=== PATIENT | male | born 1995 | race Caucasian/White ===

== ENCOUNTER 2019-05-07 13:19 | Emergency (ER) | payer OTHER, BC ==
[~2019-05-07] VITALS: Ht 172.7 cm; Wt 63.5 kg
[2019-05-07 13:31] VITALS: BP_SYST 124
--- NOTE | 2019-05-07 14:14 | NUR ---
BROUGHT BACK TO BED #6, REPORT GIVEN TO NIIK
--- NOTE | 2019-05-07 14:17 | NUR ---
Patient is awake, alert, and oriented x4. Patient works at [employer] and reports that something got stuck in his eye. He now has a foreign body sensation in right eye with scratching, burning pain. Patient denies any other symptoms at this time.
--- NOTE | 2019-05-07 14:20 | NUR ---
POLLO Brown at bedside examining patient.
[2019-05-07 14:32] VITALS: BP_SYST 124
--- NOTE | 2019-05-07 14:32 | NUR ---
Patient given written and verbal discharge instructions and verbalizes understanding. ER MD discussed with patient the results and treatment provided. Patient in stable condition. ID arm band removed. Rx of gentamicin given. Patient educated on pain management and to follow up with PMD. Pain Scale 0/10. Opportunity for questions provided and answered. Medication side effect fact sheet provided.
== END 2019-05-07 14:32 | disposition home or self-care (01) ==
LOC: SED 13:19
DX: S05.01XA Injury of conjunctiva and corneal abrasion without foreign body, right eye, initial encounter (principal); X58.XXXA Exposure to other specified factors, initial encounter; Y93.89 Activity, other specified; Y92.89 Other specified places as the place of occurrence of the external cause; Y99.8 Other external cause status
CPT/HCPCS: 99283